=== PATIENT | male | born 1935 | race Caucasian/White ===

== ENCOUNTER → 2018-01-15 | Outpatient (CLI) | payer MEDICARE, BC ==
[2018-01-15 13:06] LABS: BASO # 0.1 10^3/uL (0.0-0.2); BASO % 0.6 % (0.0-1.0); EOS # 0.3 10^3/uL (0.0-0.50); EOS % 3.2 % (0.0-3.0); HEMOGLOBIN 13.6 g/dl (13.5-17.5); IMMATURE GRANULOCYTE % 0.4 % (0-3.0); LYMPH # 1.7 10^3/uL (1.5-4.5); LYMPH % 21.4 % (24.0-44.0); MEAN CORPUSCULAR HEMOGLOBIN 32.1 pg (27.0-33.0); MEAN CORPUSCULAR VOLUME 94.3 fl (80.0-96.0); MONO # 0.8 10^3/uL (0.0-0.8); MONO % 9.7 % (0.0-5.0); NEUTROPHILS % 64.7 % (36.0-66.0); PLATELET COUNT, AUTOMATED 220 10^3/uL (150-450); RED BLOOD COUNT 4.24 10^6/uL (4.30-6.10); RED CELL DISTRIBUTION WIDTH 13.2 % (11.5-14.5); WHITE BLOOD COUNT 7.8 10^3/uL (4.0-10.0)
[2018-01-15 13:33] LABS: AMORPHOUS SEDIMENT SMALL (NEGATIVE); APPEARANCE, URINE TURBID (CLEAR); BACTERIA, URINE AUTO NEGATIVE (NEGATIVE); BILIRUBIN, URINE AUTO NEGATIVE (NEGATIVE); BLOOD, URINE BLOOD NEGATIVE (NEGATIVE); COLOR, URINE YELLOW (YELLOW); GLUCOSE, URINE (UA) AUTO NEGATIVE (NEGATIVE); KETONE, URINE AUTO NEGATIVE (NEGATIVE); LEUKOCYTE ESTERASE, URINE AUTO NEGATIVE (NEGATIVE); MUCUS, URINE LARGE (NEGATIVE); NITRITE, URINE AUTO NEGATIVE (NEGATIVE); PROTEIN, URINE AUTO NEGATIVE (NEGATIVE); RBC, URINE AUTO 0 /HPF (0-3); SPECIFIC GRAVITY URINE AUTO 1.026 (1.002-1.035); SQUAMOUS EPITHELIAL CELL UR AU 0 /HPF (0-6); WBC, URINE AUTO 0 /HPF (0-3)
[2018-01-15 13:56] LABS: ALBUMIN 3.8 GM/DL (3.2-5.2); ALBUMIN/GLOBULIN RATIO 1.12 (1.00-1.93); ALKALINE PHOSPHATASE 61 U/L (45-117); ALT/SGPT 25 U/L (12-78); AMYLASE 55 U/L (25-115); ANION GAP 5 MEQ/L (8-16); AST/SGOT 12 U/L (7-37); BILIRUBIN,TOTAL 0.5 MG/DL (0.2-1.0); BLOOD UREA NITROGEN 14 MG/DL (7-18); CALCIUM LEVEL 9.4 MG/DL (8.8-10.2); CARBON DIOXIDE LEVEL 29 MEQ/L (21-32); CHLORIDE LEVEL 110 MEQ/L (98-107); CREATININE FOR GFR 0.77 MG/DL (0.70-1.30); GLOMERULAR FILTRATION RATE > 60.0 (>35); GLUCOSE, FASTING 103 MG/DL (70-100); LIPASE 72 U/L (73-393); SODIUM LEVEL 144 MEQ/L (136-145); TOTAL PROTEIN 7.2 GM/DL (6.4-8.2)
[2018-01-15 14:01] LABS: POTASSIUM SERUM 5.2 MEQ/L (3.5-5.1)
== END ==
LOC: M WUC 09:30
DX: R10.9 Unspecified abdominal pain (principal)
CPT/HCPCS: 82150

== ENCOUNTER → 2019-11-02 | Outpatient (CLI) | payer MEDICARE, BC ==
[~2019-11-02] MED LIST: ALTA5CAP; ASPI81TA85 PO; CORE12.5; CORE25TA PO; LEXA1TAB; RAMI25CA; ZOCO40TA
== END ==
LOC: M LABSMTC 10:29
PROVIDERS: ATTEND Anesthesiology
DX: Z01.818 Encounter for other preprocedural examination (principal); Z11.59 Encounter for screening for other viral diseases

== ENCOUNTER 2019-11-05 11:51 | Day surgery (SDC) | payer MEDICARE, BC ==
[~2019-11-05] VITALS: Ht 175.3 cm; Wt 72.6 kg
[~2019-11-05 11:51] MED LIST changes: +NS 1,000 ML IV ONE
[2019-11-05] MEDS ORDERED: LIDOCAINE 2% 100MG/5ML SDV (FOR ANES.) As Ordered ONE (12:47)
[2019-11-05] MEDS ORDERED: propofoL 500 MG/50 ML VIAL As Ordered ONE (12:47)
[2019-11-05] MEDS ORDERED: propofoL 200 MG/20 ML VIAL As Ordered ONE (12:47)
--- NOTE | 2019-11-05 12:49 | ROOR ---
Patient Name: Yoel Bullock Procedure Date: 11/05/2019 12:27 PM Date of : 1935 Age: 84 Room: [facility] Gender: Male Note Status: Finalized Procedure: Colonoscopy Indications: Chronic diarrhea Providers: Yeison Medina Jr, MD Referring MD: MARISELA ROLAND MD Requesting Provider: Medicines: Propofol per Anesthesia Complications: No immediate complications. Procedure: Pre-Anesthesia Assessment: - Prior to the procedure, a History and Physical was performed, and patient medications and allergies were reviewed. The patient is competent. The risks and benefits of the procedure and the sedation options and risks were discussed with the patient. All questions were answered and informed consent was obtained. Patient identification and proposed procedure were verified by the physician and the nurse in the pre-procedure area and in the procedure room. Mental Status Examination: alert and oriented. Airway Examination: normal oropharyngeal airway and neck mobility. Respiratory Examination: clear to auscultation. CV Examination: normal. ASA Grade Assessment: II - A patient with mild systemic disease. After reviewing the risks and benefits, the patient was deemed in satisfactory condition to undergo the procedure. The anesthesia plan was to use moderate sedation / analgesia (conscious sedation). Immediately prior to administration of medications, the patient was re-assessed for adequacy to receive sedatives. The heart rate, respiratory rate, oxygen saturations, blood pressure, adequacy of pulmonary ventilation, and response to care were monitored throughout the procedure. The physical status of the patient was re-assessed after the procedure. The Colonoscope was introduced through the anus and advanced to the cecum, identified by appendiceal orifice and ileocecal valve. The colonoscopy was performed without difficulty. The patient tolerated the procedure well. The quality of the bowel preparation was adequate. Findings: The rectum, recto-sigmoid colon, sigmoid colon, descending colon, transverse colon, ascending colon, cecum, appendiceal orifice and ileocecal valve appeared normal. Biopsies for histology were taken with a cold forceps from the cecum, ascending colon, transverse colon, descending colon and sigmoid colon for evaluation of microscopic colitis. Impression: - The rectum, recto-sigmoid colon, sigmoid colon, descending colon, transverse colon, ascending colon, cecum, appendiceal orifice and ileocecal valve are normal. Biopsied. Recommendation: - Discharge patient to home (ambulatory). - Return to my office at appointment to be scheduled. Yeison Medina MD Yeison Medina Jr, MD 11/05/2019 12:48:40 PM Electronically signed by Yeison Medina Jr, MD Number of Addenda: 0 Note Initiated On: 11/05/2019 12:27 PM Estimated Blood Loss: Estimated blood loss: none.
[2019-11-05 13:20] VITALS: BP 113/77
== END 2019-11-05 13:30 | disposition home or self-care (01) ==
LOC: M OPP 11:51
PROVIDERS: ATTEND Surgery
DX: K52.9 Noninfective gastroenteritis and colitis, unspecified (principal); Z79.82 Long term (current) use of aspirin; Z79.899 Other long term (current) drug therapy; Z86.79 Personal history of other diseases of the circulatory system

== ENCOUNTER → 2020-02-24 | Outpatient (CLI) | payer MEDICARE, BC ==
[~2020-02-24] MED LIST changes: -ASPI81TA85 PO; +ASPI81TA86 PO; -NS 1,000 ML IV ONE
== END ==
LOC: M LAB 11:30
PROVIDERS: ATTEND Nurse Practitioner
DX: R19.7 Diarrhea, unspecified (principal); R10.32 Left lower quadrant pain

== ENCOUNTER → 2020-02-25 | Outpatient (CLI) | payer MEDICARE, BC ==
[2020-02-25 11:19] LABS: BLOOD UREA NITROGEN 13 MG/DL (7-18); CREATININE FOR GFR 0.74 MG/DL (0.70-1.30); GLOMERULAR FILTRATION RATE > 60.0 (>35)
== END ==
LOC: M LAB 09:15
PROVIDERS: ATTEND Nurse Practitioner
DX: R19.7 Diarrhea, unspecified (principal); R10.32 Left lower quadrant pain

== ENCOUNTER → 2020-03-02 | Outpatient (CLI) | payer MEDICARE, BC ==
[~2020-03-02] MED LIST changes: +GASTROGRAFIN SOLUTION 30ML (Q9963) As Ordered ONE; +ISOVUE-370 76% 100ML VIAL As Ordered ONE
--- NOTE | 2020-03-10 11:22 | REP ---
CT ABDOMEN AND PELVIS WITHOUT AND WITH INTRAVENOUS (IV) CONTRAST: WITH ORAL CONTRAST HISTORY: Left lower quadrant pain and diarrhea. CT CONTRAST DOSE: 100 mL of intravenous Isovue-[address] STUDY: None. CT FINDINGS: Preliminary digital motion picture scene builder radiograph demonstrates an unremarkable bowel gas pattern. The lung bases are essentially clear on axial CT images. Vascular calcification is seen. Median sternotomy wires are noted. There is evidence of an epicardial pacemaker wire at the base of the heart. No pleural or pericardial effusion is seen. No upper abdominal ascites is seen. The liver and the spleen are normal in size and homogeneous in texture on pre- and postcontrast images. No focal liver lesion is seen. Normal adrenal glands are present bilaterally. The gallbladder is unremarkable. There is an oval-shaped cystic lesion in the medial aspect of the pancreatic head measuring 1.4 x 1.5 x 3.1 cm in overall dimension. This appears to be adjacent to the common bile duct. The distal common bile duct is not dilated. At the level of the cyst, the common bile duct is not separately identifiable. There is no biliary ductal dilation in the liver or the alisha and, I believe, the finding is most likely a cystic lesion in the pancreatic head. The pancreatic duct is not dilated elsewhere. No pancreatic mass lesion is observed. There is no evidence of regional adenopathy. The kidneys are morphologically intact and enhance symmetrically. No hydronephrosis, cyst, or mass is seen. Vascular calcification is noted in the abdominal aorta. No aneurysm seen. Small and large intestinal bowel loops are normal in the upper abdomen. Pelvic CT images demonstrates left colonic diverticulosis without CT evidence of diverticulitis. There are some mild nodular changes and a few dystrophic calcifications in the prostate. Seminal vesicle and urinary bladder are unremarkable. No abdominal wall defect is observed. Bone window settings show no bony destructive lesion. There are degenerative spondylosis changes in the lumbar spine most pronounced at L4-5 and L5-S1. IMPRESSION: Oval shaped 3.1 cm cystic lesion in the head of the pancreas likely an incidental finding. Cystic pancreatic neoplasm is not excluded. Pancreatic MRI/MRCP may be of benefit to evaluate the common bile duct if clinically warranted. Transgastric endoscopic ultrasound can be used to further characterize small cystic lesions in the pancreatic head as well. There is also left colonic diverticulosis without CT evidence of diverticulitis. Otherwise, negative. MTDD
== END ==
LOC: M RAD 07:26
PROVIDERS: ATTEND Nurse Practitioner
DX: K86.9 Disease of pancreas, unspecified (principal); R19.7 Diarrhea, unspecified; R10.32 Left lower quadrant pain
CPT/HCPCS: 74178; Q9963; Q9967

== ENCOUNTER → 2020-03-25 | Outpatient (CLI) | payer MEDICARE, BC ==
[~2020-03-25] MED LIST changes: -GASTROGRAFIN SOLUTION 30ML (Q9963) As Ordered ONE; -ISOVUE-370 76% 100ML VIAL As Ordered ONE; +PROHANCE 279.3MG/ML 15ML VIAL As Ordered ONE
--- NOTE | 2020-03-27 19:59 | REP ---
INDICATION: CYST OF PANCREAS. COMPARISON: CT of the abdomen and pelvis dated 03/02/2020. TECHNIQUE: MRI of the abdomen with and without contrast using pancreatic mass protocol. 14 cc ProHance gadolinium based contrast material administered without complication. FINDINGS: A 2.6 cm cystic lesion in the head/uncinate process of the pancreas likely represents multiloculated cyst versus smaller adjacent cysts. T2 sequences demonstrate high signal intensity while T1 sequences demonstrate no obvious soft tissue component and multiple contrast-enhanced sequences demonstrate no enhancement. Cystic lesion appears benign and separate from the pancreatic ductal system which measures no more than 2 mm diameter. Remainder of the pancreas appears normal. Visualized liver, spleen, gallbladder, bilateral adrenal glands and kidneys are unremarkable. No ascites or mesenteric inflammatory changes noted. No adenopathy identified. IMPRESSION: 1. Benign appearing cystic lesion in the head/uncinate process of the pancreas. Pancreatic duct appears normal and the pancreatic parenchyma appears normal. 2. No further acute process appreciated within the visualized abdomen. <Electronically signed by Garcia Armstrong > 03/27/[id number]
== END ==
LOC: M RAD 17:40
PROVIDERS: ATTEND Surgery
DX: K86.2 Cyst of pancreas (principal)
CPT/HCPCS: 74183; A9576

== ENCOUNTER → 2020-04-14 | Outpatient (CLI) | payer MEDICARE, BC ==
[~2020-04-14] MED LIST changes: -PROHANCE 279.3MG/ML 15ML VIAL As Ordered ONE
[2020-04-14 17:20] LABS: THYROID STIMULATING HORMONE 0.739 uIU/ML (0.358-3.740)
== END ==
LOC: M LAB 16:05
PROVIDERS: ATTEND Specialist
DX: K86.2 Cyst of pancreas (principal); K59.1 Functional diarrhea; Z79.899 Other long term (current) drug therapy

== ENCOUNTER → 2020-04-16 | Outpatient (REF) | payer MEDICARE, BC | LOC: M LAB REF 08:30 | PROVIDERS: ATTEND Specialist | DX: K86.2 Cyst of pancreas (principal); K59.1 Functional diarrhea ==

== ENCOUNTER → 2020-08-11 | Outpatient (CLI) | payer MEDICARE, BC ==
--- NOTE | 2020-08-11 08:11 | REP ---
INDICATION: CYST OF PANCREAS COMPARISON: Correlation with MRI dated 03/25/2020 TECHNIQUE: Real time dela cruz scale ultrasound examination using curved array transducer. FINDINGS: Limited ultrasound examination attempted for the evaluation of the mesenteric vasculature and pancreas, but examination is severely limited due to overlying bowel gas. IMPRESSION: Limited suboptimal examination. Cannot evaluate mesenteric vessels or previously identified pancreatic cyst. Consider pre and postcontrast CT of the abdomen for further investigation if necessary. <Electronically signed by Garcia Armstrong > 08/11/20 [id number]
== END ==
LOC: M RAD 06:51
PROVIDERS: ATTEND Specialist
DX: K86.2 Cyst of pancreas (principal); R10.13 Epigastric pain

== ENCOUNTER → 2020-08-26 | Outpatient (CLI) | payer MEDICARE, BC ==
--- NOTE | 2020-08-26 10:06 | REP ---
INDICATION: CYST OF PANCREAS. COMPARISON: Abdomen/pelvis CT dated 03/02/2020, abdomen MRI dated 03/25/2020 and abdomen ultrasound dated 08/11/2020. TECHNIQUE: Multiple sonographic images of the pancreas, aorta and the celiac origin areas. FINDINGS: The patient states he has been NPO. Attempted imaging of the aorta, SMA and celiac arteries was unsuccessful. These structures are obscured by bowel gas. Imaging was attempted in supine and cubed positioning. IMPRESSION: Unsuccessful ultrasound as discussed. Follow-up CTA or MRA might be considered as felt clinically indicated. <Electronically signed by Emmanuel Pena > 08/26/20 [id number]
== END ==
LOC: M RAD 09:11
PROVIDERS: ATTEND Specialist
DX: K86.2 Cyst of pancreas (principal); R10.13 Epigastric pain

== ENCOUNTER → 2020-09-12 | Outpatient (CLI) | payer MEDICARE, BC ==
[2020-09-12 10:10] LABS: BLOOD UREA NITROGEN 15 MG/DL (7-18); CREATININE FOR GFR 0.73 MG/DL (0.70-1.30); GLOMERULAR FILTRATION RATE > 60.0 (>35)
== END ==
LOC: M LAB 08:58
PROVIDERS: ATTEND Specialist
DX: K86.2 Cyst of pancreas (principal)

== ENCOUNTER → 2020-09-19 | Outpatient (CLI) | payer MEDICARE, BC ==
[~2020-09-19] MED LIST changes: +ISOVUE-370 76% 100ML VIAL As Ordered ONE
--- NOTE | 2020-09-19 14:09 | REP ---
INDICATION: CYST OF PANCREAS COMPARISON: CT 03/02/2020, MRI 03/25/2020. TECHNIQUE: CT angiogram of the abdomen and pelvis was performed with intravenous administration of 100 cc of Isovue 370, without oral contrast. 3D MIP reconstruction images performed. FINDINGS: Abdominal aorta: No aneurysm or dissection. Moderate atherosclerotic calcifications. A focal area of ectasia in the distal abdominal aorta is unchanged, measuring 2.5 x 2.6 cm. Plaquing is seen at the origins of the main renal arteries and mesenteric arteries without evidence of significant stenosis. Lung bases: Unremarkable. Liver: Normal Gallbladder: Unremarkable. Spleen: Normal. Adrenals: Normal. Pancreas: The 1.7 cm cystic structure in the head of the pancreas is unchanged.. Kidneys: Normal. Small and large bowel: Unremarkable. Free fluid: None. Adenopathy: None. Appendix: Not inflamed. Pelvis: No mass. Urinary bladder is not well distended and not well evaluated. Osseous structures: There are degenerative changes of the spine without compression deformity. IMPRESSION: Stable CT findings as above. No change since prior exam 03/02/2020. <Electronically signed by Emmanuel Melara > 09/19/20 [id number]
== END ==
LOC: M RAD 09:01
PROVIDERS: ATTEND Specialist
DX: K86.2 Cyst of pancreas (principal); R93.89 Abnormal findings on diagnostic imaging of other specified body structures; I70.0 Atherosclerosis of aorta; I70.1 Atherosclerosis of renal artery; K55.1 Chronic vascular disorders of intestine
CPT/HCPCS: 74174; Q9967

== ENCOUNTER → 2021-10-06 | Outpatient (CLI) | payer MEDICARE, BC ==
[~2021-10-06] MED LIST changes: -ISOVUE-370 76% 100ML VIAL As Ordered ONE
[2021-10-06 08:20] LABS: BLOOD UREA NITROGEN 15 MG/DL (7-18); CREATININE FOR GFR 0.66 MG/DL (0.70-1.30); GLOMERULAR FILTRATION RATE > 60.0 (>35)
== END ==
LOC: M LAB 07:16
PROVIDERS: ATTEND Nurse Practitioner
DX: K86.2 Cyst of pancreas (principal)

== ENCOUNTER → 2021-10-09 | Outpatient (CLI) | payer MEDICARE, BC ==
[~2021-10-09] MED LIST changes: +PROHANCE 279.3MG/ML 15ML VIAL As Ordered ONE
== END ==
LOC: M RAD 08:35
PROVIDERS: ATTEND Nurse Practitioner
DX: K86.2 Cyst of pancreas (principal)
CPT/HCPCS: 74183; A9576

== ENCOUNTER 2022-06-03 15:35 | Inpatient (IN) | payer MEDICARE, BC ==
[~2022-06-03] VITALS: Ht 167.6 cm; Wt 71.6 kg
[~2022-06-03 15:35] MED LIST changes: -PROHANCE 279.3MG/ML 15ML VIAL As Ordered ONE
[2022-06-03] MEDS ORDERED: CREO24CA PO ×2 (15:51→16:26)
[2022-06-03 16:02] LABS: BASO # 0.1 10^3/uL (0.0-0.2); BASO % 0.8 % (0.0-1.0); EOS # 0.2 10^3/uL (0.0-0.5); EOS % 2.1 % (0.0-3.0); HEMATOCRIT 40.7 % (42.0-52.0); LYMPH # 2.1 10^3/uL (1.5-5.0); MEAN CORPUSCULAR HEMOGLOBIN 32.6 pg (27.0-33.0); MEAN CORPUSCULAR HGB CONC 34.4 g/dl (32.0-36.5); MEAN CORPUSCULAR VOLUME 94.9 fl (80.0-96.0); MONO # 0.7 10^3/uL (0.0-0.8); MONO % 8.8 % (2.0-8.0); NEUTROPHILS # 4.5 10^3/uL (1.5-8.5); NEUTROPHILS % 60.2 % (36.0-66.0); PLATELET COUNT, AUTOMATED 226 10^3/uL (150-450); RED BLOOD COUNT 4.29 10^6/uL (4.30-6.10); WHITE BLOOD COUNT 7.5 10^3/uL (4.0-10.0)
[2022-06-03 16:14] LABS: INR 0.98; PARTIAL THROMBOPLASTIN TIME 26.7 SECONDS (24.8-34.2); PROTHROMBIN TIME 13.2 SECONDS (12.5-14.5)
[2022-06-03] MEDS ORDERED: ASPI81TA26 PO (16:26)
[2022-06-03] MEDS ORDERED: CARV12.5 PO (16:26)
[2022-06-03 16:27] LABS: CK-MB VALUE MASS < 1.0 NG/ML (<3.6)
[2022-06-03 16:28] LABS: CPK CREATINE PHOSPHOKINASE 43 U/L (46-171); MB/CK RELATIVE INDEX 2.32 (< OR =4)
[2022-06-03] MEDS ORDERED: HOME MED LIST COMPLETE! XX SCH (16:30)
[2022-06-03 16:38] LABS: RSV AMPLIFICATION NEGATIVE (NEGATIVE)
[2022-06-03 17:03] LABS: LIPASE 24 U/L (12-53)
[2022-06-03 17:05] LABS: ALKALINE PHOSPHATASE 78 U/L (46-116); ALT/SGPT 12 U/L (7.0-40); AST/SGOT 14 U/L (<34); BILIRUBIN,DIRECT 0.1 MG/DL (<0.4); BILIRUBIN,TOTAL 0.4 MG/DL (0.3-1.2); TOTAL PROTEIN 6.9 G/DL (5.7-8.2)
[2022-06-03] MEDS: CLOPIDOGREL 75 MG TAB PO SCH (17:47)
[2022-06-03] MEDS: CREON-24 CAPSULE PO SCH (18:00)
[2022-06-03] MEDS ORDERED: ISOVUE-370 76% 100ML VIAL As Ordered ONE (18:12)
[2022-06-03 19:59] LABS: CHOLESTEROL LEVEL 195 MG/DL (<200); CHOLESTEROL RISK RATIO 3.96 (<5); HDL CHOLESTEROL 49.2 MG/DL (>40); LDL CHOLESTEROL 94.8 MG/DL (<100); NON-HDL-C 146 MG/DL; TRIGLYCERIDES LEVEL 255 MG/DL (<150)
[2022-06-03] MEDS: ATORVASTATIN 20 MG TAB PO SCH (20:28)
[2022-06-03] MEDS: ENOXAPARIN 40MG/0.4ML SYRINGE (J1650 PER 10MG) SC SCH (20:29)
[2022-06-03] MEDS: CARVedilol 12.5 MG TAB PO SCH (20:29)
[2022-06-04 07:09] LABS: HEMOGLOBIN 13.2 g/dl (13.5-17.5); MEAN CORPUSCULAR HEMOGLOBIN 32.1 pg (27.0-33.0); MEAN CORPUSCULAR HGB CONC 33.8 g/dl (32.0-36.5); MEAN CORPUSCULAR VOLUME 94.9 fl (80.0-96.0); PLATELET COUNT, AUTOMATED 204 10^3/uL (150-450); RED BLOOD COUNT 4.11 10^6/uL (4.30-6.10); WHITE BLOOD COUNT 6.5 10^3/uL (4.0-10.0)
[2022-06-04 07:40] LABS: BLOOD UREA NITROGEN 13 MG/DL (9-23); CALCIUM LEVEL 8.9 MG/DL (8.3-10.6); CARBON DIOXIDE LEVEL 29 MMOL/L (20-31); CHLORIDE LEVEL 107 MMOL/L (98-107); CREATININE FOR GFR 0.69 MG/DL (0.70-1.30); GLOMERULAR FILTRATION RATE > 60.0 (>35); GLUCOSE, FASTING 94 MG/DL (74-106); PHOSPHORUS LEVEL 2.9 MG/DL (2.4-5.1); POTASSIUM SERUM 4.7 MMOL/L (3.5-5.1); SODIUM LEVEL 141 MMOL/L (136-145)
[2022-06-04 08:00] VITALS: BP 180/74
[2022-06-04] MEDS: CARVedilol 12.5 MG TAB PO SCH (08:07)
[2022-06-04] MEDS: CLOPIDOGREL 75 MG TAB PO SCH (08:19)
[2022-06-04] MEDS: ASPIRIN 81MG ENTERIC TABLET PO SCH (08:19)
[2022-06-04] MEDS: CREON-24 CAPSULE PO SCH ×3 (08:20→19:59)
[2022-06-04 14:20] VITALS: BP 190/90
[2022-06-04 16:00] VITALS: BP 192/70
[2022-06-04 18:29] VITALS: BP 168/78
[2022-06-04 19:53] VITALS: BP 148/78
[2022-06-04] MEDS: ENOXAPARIN 40MG/0.4ML SYRINGE (J1650 PER 10MG) SC SCH (19:58)
[2022-06-04] MEDS: CARVedilol 6.25 MG TAB PO SCH (19:59)
[2022-06-04] MEDS: ATORVASTATIN 20 MG TAB PO SCH (19:59)
[2022-06-05] VITALS: BP 159/68
[2022-06-05 03:49] VITALS: BP 153/72
[2022-06-05 08:00] VITALS: BP 184/64
[2022-06-05] MEDS: CREON-24 CAPSULE PO SCH (08:00)
[2022-06-05] MEDS: CLOPIDOGREL 75 MG TAB PO SCH (08:38)
[2022-06-05] MEDS: CARVedilol 6.25 MG TAB PO SCH (08:38)
[2022-06-05 08:39] VITALS: BP 194/87
[2022-06-05] MEDS: ASPIRIN 81MG ENTERIC TABLET PO SCH (08:39)
[2022-06-05] MEDS ORDERED: amLODIPine 5 MG TAB PO SCH (09:00)
[2022-06-05 10:18] VITALS: BP 146/69
[2022-06-05] MEDS ORDERED: CLOP75TA2 PO (10:36)
[2022-06-05] MEDS ORDERED: AMLO1TAB24 PO (10:36)
[2022-06-05] MEDS ORDERED: ROSU20TA5 PO (10:36)
== END 2022-06-05 13:20 | disposition home or self-care (01) | DRG 69 ==
LOC: EDBD 15:35 → M ED 15:35 → M ED INP 17:09 → M PCU 06-04 14:47
PROVIDERS: ADMIT Internal Medicine; ATTEND Internal Medicine
DX: G45.9 Transient cerebral ischemic attack, unspecified (principal); I77.9 Disorder of arteries and arterioles, unspecified; I10 Essential (primary) hypertension; I25.10 Atherosclerotic heart disease of native coronary artery without angina pectoris; K86.9 Disease of pancreas, unspecified; R00.1 Bradycardia, unspecified; Z66 Do not resuscitate; I44.0 Atrioventricular block, first degree; Z79.82 Long term (current) use of aspirin; Z79.899 Other long term (current) drug therapy

== ENCOUNTER → 2022-09-07 | Outpatient (CLI) | payer MEDICARE, BC ==
[~2022-09-07] MED LIST changes: +AMLO1TAB24 PO; +ASPI81TA26 PO; +CARV12.5 PO; +CLOP75TA2 PO; +CREO24CA PO; +ROSU20TA5 PO
[2022-09-07 08:00] LABS: CHOLESTEROL LEVEL 125 MG/DL (<200); CHOLESTEROL RISK RATIO 2.17 (<5); HDL CHOLESTEROL 57.6 MG/DL (>40); LDL CHOLESTEROL 49.8 MG/DL (<100); NON-HDL-C 67.4 MG/DL; TRIGLYCERIDES LEVEL 88 MG/DL (<150)
[2022-09-07 08:01] LABS: VITAMIN B12 LEVEL 922 PG/ML (211-911)
[2022-09-07 08:02] LABS: FOLATE > 24.0 NG/ML (>5.4)
[2022-09-12 06:08] LABS: VITAMIN B1 LEVEL WHOLE BLOOD 202.9 nmol/L (66.5-200.0); VITAMIN B6,PYRIDOXAL PHOSPHATE 25.8 ug/L (3.4-65.2); VITAMIN E(ALPHA TOCOPHEROL) 15.7 mg/L (9.0-29.0); VITAMIN E(GAMMA TOCOPHEROL) 0.2 mg/L (0.5-4.9)
== END ==
LOC: M LAB 07:04
PROVIDERS: ATTEND Psychiatry & Neurology Neurology
DX: Z86.73 Personal history of transient ischemic attack (TIA), and cerebral infarction without residual deficits (principal); E78.5 Hyperlipidemia, unspecified; D51.9 Vitamin B12 deficiency anemia, unspecified

== ENCOUNTER → 2022-11-12 | Outpatient (REF) | payer MEDICARE, BC | LOC: M SFHCDERM 17:46 | PROVIDERS: ATTEND Physician Assistant | DX: L82.0 Inflamed seborrheic keratosis (principal) ==

== ENCOUNTER → 2022-11-13 | Outpatient (CLI) | payer MEDICARE, BC | LOC: M LAB 14:34 | PROVIDERS: ATTEND Student in an Organized Health Care Education/Training Program | DX: K86.2 Cyst of pancreas (principal) ==

== ENCOUNTER → 2022-12-24 | Outpatient (CLI) | payer MEDICARE, BC ==
[~2022-12-24] MED LIST changes: -ROSU20TA5 PO; +ROSU20TA61 PO
[2022-12-24 11:50] LABS: ALBUMIN 3.9 G/DL (3.2-5.2); ALKALINE PHOSPHATASE 86 U/L (46-116); ALT/SGPT 27 U/L (7.0-40); AST/SGOT 15 U/L (<34); BILIRUBIN,TOTAL 0.7 MG/DL (0.3-1.2); BLOOD UREA NITROGEN 12 MG/DL (9-23); CALCIUM LEVEL 10.6 MG/DL (8.3-10.6); CARBON DIOXIDE LEVEL 29 MMOL/L (20-31); CHLORIDE LEVEL 107 MMOL/L (98-107); GLOMERULAR FILTRATION RATE > 60.0 (>35); GLUCOSE, FASTING 109 MG/DL (74-106); POTASSIUM SERUM 4.6 MMOL/L (3.5-5.1); SODIUM LEVEL 141 MMOL/L (136-145); TOTAL PROTEIN 6.9 G/DL (5.7-8.2)
== END ==
LOC: M LAB 10:10
PROVIDERS: ATTEND Student in an Organized Health Care Education/Training Program
DX: R10.13 Epigastric pain (principal); K86.2 Cyst of pancreas; I99.8 Other disorder of circulatory system

== ENCOUNTER → 2023-01-03 | Outpatient (CLI) | payer MEDICARE, BC ==
[~2023-01-03] MED LIST changes: +PROHANCE 279.3MG/ML 15ML VIAL As Ordered ONE
== END ==
LOC: M RAD 15:05
PROVIDERS: ATTEND Student in an Organized Health Care Education/Training Program
DX: K86.2 Cyst of pancreas (principal); N28.1 Cyst of kidney, acquired
CPT/HCPCS: 74183; A9576

== ENCOUNTER → 2023-01-09 | Outpatient (REF) | payer MEDICARE, BC ==
[~2023-01-09] MED LIST changes: -PROHANCE 279.3MG/ML 15ML VIAL As Ordered ONE
== END ==
LOC: M SFHCDERM 14:20
PROVIDERS: ATTEND Physician Assistant
DX: L82.1 Other seborrheic keratosis (principal)

== ENCOUNTER → 2023-03-26 | Outpatient (CLI) | payer MEDICARE, BC ==
[~2023-03-26] MED LIST changes: +CARV3.12 PO; +PERC5TAB12 PO
== END ==
LOC: M RAD 09:52
PROVIDERS: ATTEND Surgery
DX: S22.41XD Multiple fractures of ribs, right side, subsequent encounter for fracture with routine healing (principal); J90 Pleural effusion, not elsewhere classified

== ENCOUNTER → 2023-12-03 | Outpatient (CLI) | payer MEDICARE ==
[~2023-12-03] MED LIST changes: +PROHANCE 279.3MG/ML 15ML VIAL ONE
== END ==
LOC: M PLAIMG 12:39
PROVIDERS: ATTEND Student in an Organized Health Care Education/Training Program
DX: K86.2 Cyst of pancreas (principal)
CPT/HCPCS: 74183; A9576

== ENCOUNTER 2025-01-14 10:20 | Day surgery (SDC) | payer MEDICARE, BC ==
[~2025-01-14] VITALS: Ht 174 cm; Wt 66.5 kg
[~2025-01-14 10:20] MED LIST changes: +HYDR12.510 PO; -PROHANCE 279.3MG/ML 15ML VIAL ONE; -ROSU20TA61 PO; +ROSU20TA86 PO
[2025-01-14] MEDS ORDERED: [UNRECOGNIZED DRUG - CODE] TP (10:52)
[2025-01-14] MEDS ORDERED: LIDOCAINE 2% 100 MG/5 ML SDV (FOR ANES.) As Ordered ONE (11:59)
[2025-01-14 12:35] VITALS: BP 144/67; TEMP 97.6; O2SAT 98
== END 2025-01-14 12:47 | disposition home or self-care (01) ==
LOC: M OPP 10:20
PROVIDERS: ATTEND Surgery
DX: D12.6 Benign neoplasm of colon, unspecified (principal); K57.30 Diverticulosis of large intestine without perforation or abscess without bleeding; Z86.0100 Personal history of colon polyps, unspecified; I25.2 Old myocardial infarction; Z79.82 Long term (current) use of aspirin; Z79.899 Other long term (current) drug therapy; Z86.73 Personal history of transient ischemic attack (TIA), and cerebral infarction without residual deficits; Z95.1 Presence of aortocoronary bypass graft

== ENCOUNTER → 2025-04-09 | Outpatient (REF) | payer MEDICARE, BC ==
[~2025-04-09] MED LIST changes: +[UNRECOGNIZED DRUG - CODE] TP
== END ==
LOC: M SFHCDERM 10:52
PROVIDERS: ATTEND Nurse Practitioner Family
DX: L57.0 Actinic keratosis (principal)